=== PATIENT | male | born 1950 | race American Indian/Alaskan Native ===

== ENCOUNTER 2018-08-26 07:41 | Emergency (ER) | payer OTHER ==
[2018-08-26] MEDS ORDERED: TYLENOL PO ONE (10:02)
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
[2018-08-26 10:49] LABS: Hematocrit 48.3 % (35.5-45.6); Hemoglobin 16.5 gm/dl (11.8-15.2); Mean Corpuscular HGB Conc 34 % (32-34); Mean Corpuscular Hemoglobin 34 pg (28-32); Mean Corpuscular Volume 100 fl (84-94); Platelet Count 162 K/mm3 (140-440); Red Blood Count 4.85 M/mm3 (3.65-5.03); Red Cell Distribution Width 12.6 % (13.2-15.2)
[2018-08-26 10:58] LABS: INR 0.97 (0.87-1.13)
[2018-08-26 10:59] LABS: Partial Thromboplastin Time 24.2 Sec. (24.2-36.6)
[2018-08-26 11:04] LABS: BUN/Creatinine Ratio 27; Blood Urea Nitrogen 19 mg/dL (9-20); Calcium 9.4 mg/dL (8.4-10.2); Hemolysis Index 17
--- NOTE | 2018-08-26 11:17 | XRay Report ---
FINAL REPORT EXAM: XR CHEST 1V AP HISTORY: chest pain COMPARISON: None. TECHNIQUE: Two frontal views of the chest heart FINDINGS: The cardiomediastinal silhouette is normal in appearance. The lungs are clear without focal consolidation. There is no pleural effusion or pneumothorax. There is no acute soft tissue or osseous abnormality. IMPRESSION: No acute cardiopulmonary disease.
[2018-08-26 11:24] LABS: Basophils % (Manual) 0 % (0.0-1.8); Total Cells Counted 100
[2018-08-26 11:25] LABS: RBC Morphology Normal
--- NOTE | 2018-08-26 11:45 | Cat Scan Report ---
FINAL REPORT EXAM: CT HEAD/BRAIN WO CON HISTORY: left arm, hand, and 4th/5th digit numbness TECHNIQUE: CT of the head was performed. No intravenous contrast was administered. PRIORS: None. FINDINGS: There is no evidence of intracranial hemorrhage. There is no edema, mass effect or midline shift. There are no abnormal extra-axial fluid collections. The ventricles are appropriate for brain volume. There is no skull fracture seen. There is some ethmoid sinus mucosal thickening. IMPRESSION: There is no acute intracranial abnormality identified.
--- NOTE | 2018-08-26 12:00 | Cat Scan Report ---
FINAL REPORT EXAM: CT ANGIO CHEST HISTORY: chest pain COMPARISON: None. TECHNIQUE: Multiple contiguous axial images were obtained from the thoracic inlet to the upper abdomen after administration of IV contrast. Reformatted sagittal and coronal images were available for review. 3D maximal intensity projection images were also provided. FINDINGS: Medical devices: None. Thyroid: Normal. Lymph nodes: No significant mediastinal, hilar, or axillary lymphadenopathy. Vasculature: No filling defect within the main pulmonary artery and its branches to suggest pulmonary embolism. Normal caliber of the thoracic aorta with a conventional branching pattern of the aortic arch. Heart: Normal heart size. Other mediastinal structures: Normal. Lung parenchyma: No suspicious nodule or mass. No focal consolidation. Airways: Patent. No bronchiectasis. Pleura: No pleural effusion or pneumothorax. Chest wall and spine: No suspicious osseous lesions. No acute fracture or dislocation. Upper Abdomen: Normal. IMPRESSION: No evidence of pulmonary embolism. No acute intrathoracic pathology.
[2018-08-26 12:35] VITALS: BP 130/73
== END 2018-08-26 12:57 | disposition home or self-care (01) ==
LOC: ED 07:41
DX: R07.89 Other chest pain (principal); G58.9 Mononeuropathy, unspecified; I10 Essential (primary) hypertension; Z91.012 Allergy to eggs; Z91.018 Allergy to other foods
CPT/HCPCS: 36415; 70450; 71045; 71275; 80048; 84484; 85007; 85025; 85610; 85730; 93005; 93010; 99285; Q9967